=== PATIENT | male | born 1975 ===

== ENCOUNTER 2017-12-02 12:16 | Emergency (ER) | payer BC ==
[2017-12-02 12:27] VITALS: BP 156/101; PULSE 85; RESP 18; TEMP 98.8; O2SAT 98
[2017-12-02] MEDS ORDERED: Tetanus/Diphtheria Toxoids 0.5 ml Syringe IM ONE ×2 (12:29→12:36)
--- NOTE | 2017-12-02 12:30 | C.PDOC ---
History Of Present Illness 42 year old male presents to the ED for evaluation of a laceration to the palm of his left hand. Patient states that while demolishing a bathroom he accidentally but his left palm on broken tile. Patient is unsure of tetanus vaccination status. He denies sensory changes or other injuries. Time Seen by Provider: 12/02/17 12:21 Chief Complaint (Nursing): Abnormal Skin Integrity History Per: Patient History/Exam Limitations: no limitations Onset/Duration Of Symptoms: Hrs Current Symptoms Are (Timing): Still Present Location Of Injury: Left: Hand (palm) Quality Of Symptoms: Painful Severity: Mild Additional History Per: Patient Past Medical History Reviewed: Historical Data, Nursing Documentation, Vital Signs Vital Signs: Last Vital Signs Temp 98.8 F 12/02/17 12:25 Pulse 85 12/02/17 12:25 Resp 18 12/02/17 12:25 BP 156/101 H 12/02/17 12:25 Pulse Ox 98 12/02/17 13:17 - Medical History PMH: Diverticulitis, HTN, Hyperlipidemia Surgical History: No Surg Hx Family History: States: No Known Family Hx - Social History Hx Alcohol Use: No Hx Substance Use: No - Immunization History Hx Tetanus Toxoid Vaccination: No Hx Influenza Vaccination: No Hx Pneumococcal Vaccination: No Review Of Systems Constitutional: Negative for: Fever, Chills Cardiovascular: Negative for: Chest Pain Respiratory: Negative for: Cough, Shortness of Breath Gastrointestinal: Negative for: Nausea, Vomiting Musculoskeletal: Positive for: Hand Pain Skin: Positive for: Other (Laceration) Neurological: Negative for: Weakness, Numbness Physical Exam - Physical Exam Appears: Well, Non-toxic, No Acute Distress Skin: Normal Color, Warm, Dry Oral Mucosa: Moist Cardiovascular: Rhythm Regular Respiratory: Normal Breath Sounds, No Rales, No Rhonchi, No Wheezing Extremity: Normal ROM, No Tenderness, Capillary Refill (< 2 seconds all digits ) , No Swelling, Other (left palm at thenar eimence: lunate shaped 2cm laceration) Extremity: Bilateral: Atraumatic, Normal Color And Temperature, Normal ROM Pulses: Left Radial: Normal, Right Radial: Normal Neurological/Psych: Oriented x3, Normal Motor, Normal Sensation Gait: Steady ED Course And Treatment O2 Sat by Pulse Oximetry: 98 (ON RA) Pulse Ox Interpretation: Normal Progress Note: Plan: Patient given tetanus vaccination IM, PO Keflex and PO Tylenol. Laceration repair done by me, patient tolerated well. Reevaluation Time: 13:15 Reassessment Condition: Improved (Patient is resting comfortably, feels better after laceration repair. Rxs for Naprosyn and Keflex given, and patient instructed to follow up with PMD/clinic in 1-2 days, with suture removal in 7 days. He understands he should return to ED if he has any concerning symptoms.) Laceration - Laceration Repair left palm Wound Length (In cm): 2 Description Of Wound: Irregular (lunate shape) Wound Cleansed With: Betadine, Sterile Saline Anesthesia: Lidocaine 1% (approx 5ml) Wound Examination: Irrigated With Saline, No FB With Wound Exploration Wound Debridement/Revision: Wound Debrided Wound Closure: Suture Suture Technique And Material Used: Nylon (5 dermal 3-0), Vicryl (2 subcutaneous 4-0) Disposition Counseled Patient/Family Regarding: Studies Performed, Diagnosis, Need For Followup, Rx Given - Disposition Referrals: Jeffrey Siddiqui MD [Medical Doctor] - Disposition: HOME/ ROUTINE Disposition Time: 13:15 Condition: STABLE Additional Instructions: SUTURE REMOVAL IN 7 DAYS USE MEDICATIONS DIRECTED KEEP AREA COVERED FOR 24 HOURS RETURN TO ER IF SYMPTOMS WORSEN Prescriptions: Cephalexin [Keflex] 500 mg PO BID #14 capsule Naproxen 375 mg PO BID PRN #20 tablet PRN Reason: pain Instructions: Laceration Repair With Stitches (DC) Forms: [facility] (French) Print Language: CITIZEN [place] - POA Present On Arrival: Falls Or Trauma - Clinical Impression Clinical Impression: Laceration of hand - Scribe Statement The provider has reviewed the documentation as recorded by the Scribe Gray Meneses All medical record entries made by the Scribe were at my direction and personally dictated by me. I have reviewed the chart and agree that the record accurately reflects my personal performance of the history, physical exam, medical decision making, and the department course for this patient. I have also personally directed, reviewed, and agree with the discharge instructions and disposition.
[2017-12-02] MEDS ORDERED: Lidocaine 1% Inj (20ml) INFIL ONE (12:31)
[2017-12-02] MEDS ORDERED: Lidocaine 2% MPF (5 ml) Inj ONE (12:36)
[2017-12-02] MEDS ORDERED: Lidocaine 2% Inj (20ml) INFIL ONE (12:39)
[2017-12-02] MEDS ORDERED: Bacitracin 500 Units/gm Oint Foilpak UD TOP ONE (12:57)
[2017-12-02] MEDS ORDERED: Bacitracin 500 Units/gm Oint Foilpak UD ONE (13:09)
== END 2017-12-02 13:25 | disposition home or self-care (01) ==
LOC: MERGE 12:16 → C.ER 12:16 → UNMERGE 12:16 → C.ER 13:25
DX: S61.412A Laceration without foreign body of left hand, initial encounter (principal); W45.8XXA Other foreign body or object entering through skin, initial encounter; E78.5 Hyperlipidemia, unspecified; I10 Essential (primary) hypertension; Z23 Encounter for immunization